=== PATIENT | male | born 1955 ===

== ENCOUNTER 2017-01-31 07:01 | Inpatient (IN) | payer SELFPAY ==
[2017-01-31] MEDS ORDERED: Piperacillin/Tazobact 3.375 gm Inj IVPB ONE (09:00)
[2017-01-31 23:47] VITALS: BMI 32.4
[2017-02-01] MEDS ORDERED: Dextrose 5%/0.45% NS 1,000 ML IV SCH (06:15)
--- NOTE | 2017-02-01 07:20 | CP.PCM.CON ---
<Dionne Forbes - Last Filed: 02/01/17 07:12> History of Present Illness - History of Present Illness History of Present Illness: General Surgery - Dr. Choudhury 61 yo M who presents to ED with epigastric abdominal pain that began yesterday around 2AM. Pt states he's had this pain once before but it went away on it's own. He describes the pain as sharp/burning located in the epigastric region, 8 /10, with some radiation to the back. Pt states the pain resolved after pain medication. He denies any associated nausea, vomiting, diarrhea, constipation , fevers, chills, SOB or chest pain. PMH/PSH: denies NKDA CT abd/pelvis done in the ED showed a distended galllbladder with thickened wall , surgery was consulted for cholecystitis. Review of Systems - Review of Systems All systems: reviewed and no additional remarkable complaints except (as per HPI ) Meds Allergies/Adverse Reactions: Allergies Allergy/AdvReac Type Severity Reaction Status Date / Time No Known Allergies Allergy Verified 01/31/17 23:47 - Medications Medications: Current Medications Acetaminophen (Tylenol 325mg Tab) 650 mg PO Q6 PRN PRN Reason: Pain, Mild (1-3) Acetaminophen (Tylenol 325mg Tab) 650 mg PO Q6 PRN PRN Reason: Fever >100.4 F Dextrose/Sodium Chloride (Dextrose 5%/0.45% Ns 1000 Ml) 1,000 mls @ 80 mls/hr IV .[id number] [facility] Stop: 02/04/17 06:08 Piperacillin Sod/Tazobactam (Sod 3.375 gm/ Sodium Chloride) 100 mls @ 100 mls/ hr IVPB Q8 [facility] Morphine Sulfate (Morphine) 2 mg IVP Q4 PRN PRN Reason: Pain, moderate (4-7) Morphine Sulfate (Morphine) 4 mg IVP Q4 PRN PRN Reason: Pain, severe (8-10) Ondansetron HCl (Zofran Inj) 4 mg IVP Q6 PRN PRN Reason: Nausea/Vomiting Physical Exam - Constitutional Appears: No Acute Distress - Head Exam Head Exam: ATRAUMATIC, NORMAL INSPECTION, NORMOCEPHALIC - Eye Exam Eye Exam: EOMI, Normal appearance - ENT Exam ENT Exam: Mucous Membranes Moist - Respiratory Exam Respiratory Exam: NORMAL BREATHING PATTERN. absent: Respiratory Distress - Cardiovascular Exam Cardiovascular Exam: REGULAR RHYTHM - GI/Abdominal Exam GI & Abdominal Exam: Soft. absent: Distended, Guarding, Rebound, Rigid, Tenderness - Neurological Exam Neurological exam: Alert, Oriented x3 - Psychiatric Exam Psychiatric exam: Normal Affect, Normal Mood - Skin Skin Exam: Dry, Intact Results - Imaging and Cardiology CT scan - abdomen Status: Report reviewed by me Assessment & Plan - Assessment and Plan (Free Text) Assessment: 61 yo M w/ epigastric pain and CT findings suggestive of cholecystitis -NPO, IVF -U/S RUQ to further eval GB and CBD -F/U Labs -Poss Cholecystectomy Saturday DW Dr Kei Forbes PGY2 <Rodrigo Choudhury - Last Filed: 02/03/17 22:43> Results - Vital Signs Recent Vital Signs: Last Vital Signs Temp 99.6 F 02/01/17 16:15 Pulse 81 02/01/17 08:08 Resp 20 02/01/17 08:08 BP 107/66 02/01/17 08:08 Pulse Ox 96 02/01/17 08:08 - Labs Result Diagrams: 01/31/17 07:56 01/31/17 07:56 Attending/Attestation - Attestation I have personally seen and examined this patient.: Yes I have fully participated in the care of the patient.: Yes I have reviewed all pertinent clinical information: Yes Notes (Text): 02/03/17 22:42 Pt was seen and examined at bedside on 02/01/17 Agree with above note and assessment Pt with RUQ pain and Cholelithiasis Pt is asymptomatic currently C.w current mx Plan d.w pt in detail Risk and benefit explained in detail.
[2017-02-01 08:09] VITALS: BP 107/66; PULSE 81; RESP 20; O2SAT 96
--- NOTE | 2017-02-01 08:13 | CP.PCM.PN ---
Subjective - Date & Time of Evaluation Date of Evaluation: 02/01/17 Time of Evaluation: 08:10 - Subjective Subjective: General Surgery - Dr. Choudhury Pt S&EHi GOEL. Pt states his abdominal pain is resolved. He denies any N/V, F/ C, Sob/Cp. U/S was performed yesterday with no evidence of gallstones. Objective - Vital Signs/Intake and Output Vital Signs (last 24 hours): Temp Pulse Resp BP Pulse Ox 99.9 F H 81 20 107/66 96 02/01/17 08:08 02/01/17 08:08 02/01/17 08:08 02/01/17 08:08 02/01/17 08:08 - Medications Medications: Current Medications Acetaminophen (Tylenol 325mg Tab) 650 mg PO Q6 PRN PRN Reason: Pain, Mild (1-3) Acetaminophen (Tylenol 325mg Tab) 650 mg PO Q6 PRN PRN Reason: Fever >100.4 F Dextrose/Sodium Chloride (Dextrose 5%/0.45% Ns 1000 Ml) 1,000 mls @ 80 mls/hr IV .[id number] [facility] Stop: 02/04/17 06:08 Piperacillin Sod/Tazobactam (Sod 3.375 gm/ Sodium Chloride) 100 mls @ 100 mls/ hr IVPB Q8 [facility] Morphine Sulfate (Morphine) 2 mg IVP Q4 PRN PRN Reason: Pain, moderate (4-7) Morphine Sulfate (Morphine) 4 mg IVP Q4 PRN PRN Reason: Pain, severe (8-10) Ondansetron HCl (Zofran Inj) 4 mg IVP Q6 PRN PRN Reason: Nausea/Vomiting - Constitutional Appears: Well, No Acute Distress - Head Exam Head Exam: ATRAUMATIC, NORMAL INSPECTION, NORMOCEPHALIC - Eye Exam Eye Exam: Normal appearance - Respiratory Exam Respiratory Exam: NORMAL BREATHING PATTERN. absent: Respiratory Distress - Cardiovascular Exam Cardiovascular Exam: REGULAR RHYTHM - GI/Abdominal Exam GI & Abdominal Exam: Soft. absent: Distended, Guarding, Rigid (negative breen' s), Tenderness, Rebound - Neurological Exam Neurological Exam: Alert, Oriented x3 - Psychiatric Exam Psychiatric exam: Normal Affect, Normal Mood - Skin Skin Exam: Dry, Intact Assessment and Plan - Assessment and Plan (Free Text) Assessment: 61 yo M w/ epigastric abdominal pain, resolved -CT and U/S show thickened GB wall but no evidence of gallstones -Regular diet -Consider GI evaluation -If tolerating PO and remains pain free pt is clear for d/c from surgical standpoint -Pt may F/U in office with Dr. Choudhury for outpatient workup. Dw Dr Kei Forbes PGY2
[2017-02-01 08:53] LABS: ALKALINE PHOSPHATASE 76 U/L (38-126); ALT/SGPT 38 U/L (21-72); AST/SGOT 31 U/L (17-59); BILIRUBIN,TOTAL 0.4 mg/dl (0.2-1.3); BLOOD UREA NITROGEN 21 mg/dl (9-20); CALCIUM 9.1 mg/dL (8.4-10.2); CARBON DIOXIDE 25 mmol/L (22-30); CHLORIDE 103 mmol/L (98-107); GFR AFRICAN-AMERICAN > 60; GLUCOSE,RANDOM 140 mg/dL (75-110); LIPASE 72 U/L (23-300); POTASSIUM 4.1 MMOL/L (3.6-5.0); SODIUM 139 mmol/l (132-148); TOTAL PROTEIN 7.7 G/DL (6.3-8.2)
[2017-02-01 08:55] LABS: ALB/GLOB RATIO 1.3 (1.0-2.1)
[2017-02-01] MEDS ORDERED: Piperacillin/Tazobact 3.375 GM in Sodium Chloride 0.9% 100 ML IVPB SCH (09:00)
[2017-02-01 09:27] LABS: BASO # 0.1 K/uL (0.0-0.2); BASO % 0.5 % (0.0-2.0); EOS # 0.3 K/uL (0.0-0.7); EOS % 1.9 % (0.0-4.0); LYMPH # 1.9 K/uL (1.0-4.3); LYMPH % 12.8 % (20.0-40.0); MEAN CELL VOLUME 85.3 fl (80.0-94.0); MEAN CORPUSCULAR HEMOGLOBIN 28.1 pg (27.0-31.0); MEAN PLATELET VOLUME 8.1 fl (7.2-11.7); MONO # 0.9 K/uL (0.0-0.8); MONO % 5.8 % (0.0-10.0); NEUT # 11.7 K/uL (1.8-7.0); NRBC % 0.1 % (0.0-0.0); RED CELL DISTRIBUTION WIDTH 12.9 % (11.5-14.5); WHITE BLOOD COUNT 14.8 K/uL (4.8-10.8)
--- NOTE | 2017-02-01 10:55 | CT ---
PROCEDURE: CT Abdomen and Pelvis with contrast HISTORY: Not provided COMPARISON: None. TECHNIQUE: Contrast dose: 95 mL Omnipaque 300 Radiation dose: Total exam DLP = 1276.76 mGy-cm. This CT exam was performed using one or more of the following dose reduction techniques: Automated exposure control, adjustment of the mA and/or kV according to patient size, and/or use of iterative reconstruction technique. FINDINGS: LOWER THORAX: Minimal dependent atelectasis at lung bases. LIVER: Normal size, contour and attenuation. No mass. No biliary ductal dilatation. GALLBLADDER AND BILE DUCTS: Multiple cholesterol calculi. Diffusely thickened gallbladder wall with small amount of pericholecystic fluid. Findings concerning for acute cholecystitis. Consider correlation with ultrasound examination. No evidence of choledocholithiasis. PANCREAS: Unremarkable. No gross lesion or ductal dilatation. SPLEEN: Unremarkable. ADRENALS: Unremarkable. No mass. KIDNEYS AND URETERS: Unremarkable. No hydronephrosis. No solid mass. VASCULATURE: Unremarkable. No aortic aneurysm. BOWEL: Scattered colonic diverticulae. No evidence of diverticulitis. No bowel obstruction. No abnormal bowel loops otherwise. APPENDIX: Not identified. No secondary findings to suggest acute appendicitis. PERITONEUM: Trace ascites in right paracolic gutter. LYMPH NODES: Unremarkable. No enlarged lymph nodes. BLADDER: Unremarkable. REPRODUCTIVE: Normal prostate BONES: No acute fracture. OTHER FINDINGS: None. IMPRESSION: Cholelithiasis with thickened gallbladder wall and pericholecystic fluid. Findings are suspicious for acute cholecystitis. Consider correlation with ultrasound examination. Trace fluid in right paracolic gutter likely related to the gallbladder. No other acute abnormality is identified.
[2017-02-01 11:14] LABS: ABG ALLEN TEST YES; ARTERIAL BLOOD GAS HCO3 25.8 mmol/L (21-28); ARTERIAL BLOOD GAS PO2 74 mm/Hg (80-100)
[2017-02-01 11:20] LABS: VENOUS BLOOD GAS MODE ROOM AIR
[2017-02-01 11:31] LABS: VENOUS BLOOD GAS BASE EXCESS 2.8 mmol/L (0.0-2.0); VENOUS BLOOD GAS PCO2 40 mmHg (40-60); VENOUS BLOOD PH 7.44 (7.32-7.43)
[2017-02-01 11:34] LABS: VENOUS BLOOD GAS BASE EXCESS 2.8 mmol/L (0.0-2.0); VENOUS BLOOD GAS MODE ROOM AIR; VENOUS BLOOD GAS PCO2 40 mmHg (40-60); VENOUS BLOOD PH 7.44 (7.32-7.43)
--- NOTE | 2017-02-01 13:32 | US ---
HISTORY: Abdominal pain COMPARISON: Limited abdominal ultrasound performed 02/27/16 TECHNIQUE: Sonographic evaluation of the right upper quadrant of the abdomen. FINDINGS: LIVER: Measures 13.7 cm in length. Echogenic liver may be seen in setting of hepatic parenchymal disease or fatty infiltration. No focal hepatic mass identified. No intrahepatic bile duct dilatation. GALLBLADDER: Gallstones. Gallbladder wall thickening measuring approximately 7 mm. Mild pericholecystic edema. Negative sonographic Oliver's sign as assessed by the tire fabricator. COMMON BILE DUCT: Measures 4 mm. PANCREAS: Not well-visualized. RIGHT KIDNEY: Measures 10.1 x 5.7 x 5.2 cm. No obstructing calculus or hydronephrosis identified. AORTA: Limited visualization appears grossly unremarkable. IVC: Limited visualization appears grossly unremarkable. OTHER FINDINGS: None . IMPRESSION: Echogenic liver may be seen in setting of hepatic parenchymal disease or fatty infiltration. Cholelithiasis. Gallbladder wall thickening. Pericholecystic edema. Negative sonographic Oliver sign as assessed by the tire fabricator.
--- NOTE | 2017-02-01 15:18 | CP.PCM.DIS ---
<Krishna Lizarraga - Last Filed: 02/03/17 13:53> Provider - Provider Date of Admission: 01/31/17 18:00 Attending physician: Sera Elias MD Primary care physician: Dr Méndez Consults: General Surgery Time Spent in preparation of Discharge (in minutes): 30 Diagnosis - Discharge Diagnosis (1) Acute cholecystitis Status: Acute Comment: Stable. For f/u as outpatient/LAP Hospital Course - Lab Results Lab Results: Most Recent Lab Values WBC 14.8 K/uL (4.8-10.8) H 01/31/17 07:56 RBC 4.93 Mil/uL (4.40-5.90) 01/31/17 07:56 Hgb 13.9 g/dL (12.0-18.0) 01/31/17 07:56 Hct 42.0 % (35.0-51.0) 01/31/17 07:56 MCV 85.3 fl (80.0-94.0) 01/31/17 07:56 MCH 28.1 pg (27.0-31.0) 01/31/17 07:56 MCHC 33.0 g/dL (33.0-37.0) 01/31/17 07:56 RDW 12.9 % (11.5-14.5) 01/31/17 07:56 Plt Count 235 K/uL (130-400) 01/31/17 07:56 MPV 8.1 fl (7.2-11.7) 01/31/17 07:56 Neut % (Auto) 79.0 % (50.0-75.0) H 01/31/17 07:56 Lymph % (Auto) 12.8 % (20.0-40.0) L 01/31/17 07:56 Cecil % (Auto) 5.8 % (0.0-10.0) 01/31/17 07:56 Eos % (Auto) 1.9 % (0.0-4.0) 01/31/17 07:56 Baso % (Auto) 0.5 % (0.0-2.0) 01/31/17 07:56 Neut # 11.7 K/uL (1.8-7.0) H 01/31/17 07:56 Lymph # 1.9 K/uL (1.0-4.3) 01/31/17 07:56 Cecil # 0.9 K/uL (0.0-0.8) H 01/31/17 07:56 Eos # 0.3 K/uL (0.0-0.7) 01/31/17 07:56 Baso # 0.1 K/uL (0.0-0.2) 01/31/17 07:56 pCO2 43 mm/Hg (35-45) 01/31/17 12:55 pO2 42 mm/Hg (30-55) 02/01/17 09:00 HCO3 25.8 mmol/L (21-28) 01/31/17 12:55 ABG pH 7.40 (7.35-7.45) 01/31/17 12:55 ABG Total CO2 27.9 mmol/L (22-28) 01/31/17 12:55 ABG O2 Saturation 96.0 % (95-98) 01/31/17 12:55 ABG Base Excess 1.4 mmol/L (-2.0-3.0) 01/31/17 12:55 Sanchez Test Yes 01/31/17 12:55 ABG Potassium 4.9 mmol/L (3.6-5.2) 01/31/17 12:55 VBG pH 7.44 (7.32-7.43) H 02/01/17 09:00 VBG pCO2 40 mmHg (40-60) 02/01/17 09:00 VBG HCO3 26.6 mmol/L 02/01/17 09:00 VBG Total CO2 28.4 mmol/L (22-28) H 02/01/17 09:00 VBG O2 Sat (Calc) 86.0 % (40-65) H 02/01/17 09:00 VBG Base Excess 2.8 mmol/L (0.0-2.0) H 02/01/17 09:00 VBG Potassium 3.2 mmol/L (3.6-5.2) L 02/01/17 09:00 A-a O2 Difference 58.0 mm/Hg 02/01/17 09:00 Sodium 133.0 mmol/L (132-148) 02/01/17 09:00 Chloride 103.0 mmol/L (98-107) 02/01/17 09:00 Glucose 134 mg/dL (75-110) H 02/01/17 09:00 Lactate 0.9 mmol/L (0.7-2.1) 02/01/17 09:00 FiO2 21 % 02/01/17 09:00 Crit Value Called To Sultana rivera r.n 01/31/17 15:50 Crit Value Called By 15 01/31/17 15:50 Crit Value Read Back Y 01/31/17 15:50 Blood Gas Notified Time 905 01/31/17 15:50 Sodium 139 mmol/l (132-148) 01/31/17 07:56 Potassium 4.1 MMOL/L (3.6-5.0) 01/31/17 07:56 Chloride 103 mmol/L (98-107) 01/31/17 07:56 Carbon Dioxide 25 mmol/L (22-30) 01/31/17 07:56 Anion Gap 15 (10-20) 01/31/17 07:56 BUN 21 mg/dl (9-20) H 01/31/17 07:56 Creatinine 0.9 mg/dL (0.8-1.5) 01/31/17 07:56 Est GFR ( Amer) > 60 01/31/17 07:56 Est GFR (Non-Af Amer) > 60 01/31/17 07:56 Random Glucose 140 mg/dL (75-110) H 01/31/17 07:56 Calcium 9.1 mg/dL (8.4-10.2) 01/31/17 07:56 Total Bilirubin 0.4 mg/dl (0.2-1.3) 01/31/17 07:56 AST 31 U/L (17-59) 01/31/17 07:56 ALT 38 U/L (21-72) 01/31/17 07:56 Alkaline Phosphatase 76 U/L (38-126) 01/31/17 07:56 Troponin I < 0.0120 ng/mL (0.00-0.120) 01/31/17 07:56 Total Protein 7.7 G/DL (6.3-8.2) 01/31/17 07:56 Albumin 4.4 g/dL (3.5-5.0) 01/31/17 07:56 Globulin 3.3 gm/dL (2.2-3.9) 01/31/17 07:56 Albumin/Globulin Ratio 1.3 (1.0-2.1) 01/31/17 07:56 Lipase 72 U/L (23-300) 01/31/17 07:56 Arterial Blood Potassium 4.9 mmol/L (3.6-5.2) 01/31/17 12:55 Venous Blood Potassium 3.2 mmol/L (3.6-5.2) L 02/01/17 09:00 - Hospital Course Hospital Course: 61 y/o M with no significant PMhx admitted to hosp for acute onset epigastric/ RUQ pain. Found to have acute cholecystitis with gallstones on abd US. Sx consulted and evaluated patient. The next day after admission patient symptoms resolved, he was started on diet and tolerated food with no vomiting or nausea and Sx team decided that patient was safe to DC home with PO abx and f/u in 1 week for ambulatory LAP cholecystectomy. Discharge Exam - Head Exam Head Exam: ATRAUMATIC, NORMAL INSPECTION, NORMOCEPHALIC - Eye Exam Eye Exam: PERRL - ENT Exam ENT Exam: Mucous Membranes Moist - Respiratory Exam Respiratory Exam: Clear to PA & Lateral, NORMAL BREATHING PATTERN - Cardiovascular Exam Cardiovascular Exam: REGULAR RHYTHM, +S1, +S2. absent: Gallop - GI/Abdominal Exam GI & Abdominal Exam: Normal Bowel Sounds, Soft, Unremarkable. absent: Distended , Rebound, Tenderness - Neurological Exam Neurological exam: Alert, Normal Gait, Oriented x3 - Psychiatric Exam Psychiatric exam: Normal Affect, Normal Mood - Skin Skin Exam: Normal Color, Warm Discharge Plan - Discharge Medications Prescriptions: Amoxicillin/Clavulanate [Augmentin 875 MG-125 MG] 1 tab PO BID #14 tab - Follow Up Plan Condition: GOOD Disposition: HOME/ ROUTINE Instructions: Cholecystitis (DC), Acute Nausea and Vomiting (DC) Additional Instructions: Upon discharge call Dr. Choudhury's office to schedule an appointment for an elective cholecystectomy Referrals: Rodrigo Choudhury MD [Staff Provider] - <Dolores Moseley - Last Filed: 02/04/17 11:12> Provider - Provider Date of Admission: 01/31/17 18:00 Attending physician: Sera Elias MD Hospital Course - Lab Results Lab Results: Most Recent Lab Values WBC 14.8 K/uL (4.8-10.8) H 01/31/17 07:56 RBC 4.93 Mil/uL (4.40-5.90) 01/31/17 07:56 Hgb 13.9 g/dL (12.0-18.0) 01/31/17 07:56 Hct 42.0 % (35.0-51.0) 01/31/17 07:56 MCV 85.3 fl (80.0-94.0) 01/31/17 07:56 MCH 28.1 pg (27.0-31.0) 01/31/17 07:56 MCHC 33.0 g/dL (33.0-37.0) 01/31/17 07:56 RDW 12.9 % (11.5-14.5) 01/31/17 07:56 Plt Count 235 K/uL (130-400) 01/31/17 07:56 MPV 8.1 fl (7.2-11.7) 01/31/17 07:56 Neut % (Auto) 79.0 % (50.0-75.0) H 01/31/17 07:56 Lymph % (Auto) 12.8 % (20.0-40.0) L 01/31/17 07:56 Cecil % (Auto) 5.8 % (0.0-10.0) 01/31/17 07:56 Eos % (Auto) 1.9 % (0.0-4.0) 01/31/17 07:56 Baso % (Auto) 0.5 % (0.0-2.0) 01/31/17 07:56 Neut # 11.7 K/uL (1.8-7.0) H 01/31/17 07:56 Lymph # 1.9 K/uL (1.0-4.3) 01/31/17 07:56 Cecil # 0.9 K/uL (0.0-0.8) H 01/31/17 07:56 Eos # 0.3 K/uL (0.0-0.7) 01/31/17 07:56 Baso # 0.1 K/uL (0.0-0.2) 01/31/17 07:56 pCO2 43 mm/Hg (35-45) 01/31/17 12:55 pO2 42 mm/Hg (30-55) 02/01/17 09:00 HCO3 25.8 mmol/L (21-28) 01/31/17 12:55 ABG pH 7.40 (7.35-7.45) 01/31/17 12:55 ABG Total CO2 27.9 mmol/L (22-28) 01/31/17 12:55 ABG O2 Saturation 96.0 % (95-98) 01/31/17 12:55 ABG Base Excess 1.4 mmol/L (-2.0-3.0) 01/31/17 12:55 Sanchez Test Yes 01/31/17 12:55 ABG Potassium 4.9 mmol/L (3.6-5.2) 01/31/17 12:55 VBG pH 7.44 (7.32-7.43) H 02/01/17 09:00 VBG pCO2 40 mmHg (40-60) 02/01/17 09:00 VBG HCO3 26.6 mmol/L 02/01/17 09:00 VBG Total CO2 28.4 mmol/L (22-28) H 02/01/17 09:00 VBG O2 Sat (Calc) 86.0 % (40-65) H 02/01/17 09:00 VBG Base Excess 2.8 mmol/L (0.0-2.0) H 02/01/17 09:00 VBG Potassium 3.2 mmol/L (3.6-5.2) L 02/01/17 09:00 A-a O2 Difference 58.0 mm/Hg 02/01/17 09:00 Sodium 133.0 mmol/L (132-148) 02/01/17 09:00 Chloride 103.0 mmol/L (98-107) 02/01/17 09:00 Glucose 134 mg/dL (75-110) H 02/01/17 09:00 Lactate 0.9 mmol/L (0.7-2.1) 02/01/17 09:00 FiO2 21 % 02/01/17 09:00 Crit Value Called To Sultana rivera r.n 01/31/17 15:50 Crit Value Called By Francisca 01/31/17 15:50 Crit Value Read Back Y 01/31/17 15:50 Blood Gas Notified Time 905 01/31/17 15:50 Sodium 139 mmol/l (132-148) 01/31/17 07:56 Potassium 4.1 MMOL/L (3.6-5.0) 01/31/17 07:56 Chloride 103 mmol/L (98-107) 01/31/17 07:56 Carbon Dioxide 25 mmol/L (22-30) 01/31/17 07:56 Anion Gap 15 (10-20) 01/31/17 07:56 BUN 21 mg/dl (9-20) H 01/31/17 07:56 Creatinine 0.9 mg/dL (0.8-1.5) 01/31/17 07:56 Est GFR ( Amer) > 60 01/31/17 07:56 Est GFR (Non-Af Amer) > 60 01/31/17 07:56 Random Glucose 140 mg/dL (75-110) H 01/31/17 07:56 Calcium 9.1 mg/dL (8.4-10.2) 01/31/17 07:56 Total Bilirubin 0.4 mg/dl (0.2-1.3) 01/31/17 07:56 AST 31 U/L (17-59) 01/31/17 07:56 ALT 38 U/L (21-72) 01/31/17 07:56 Alkaline Phosphatase 76 U/L (38-126) 01/31/17 07:56 Troponin I < 0.0120 ng/mL (0.00-0.120) 01/31/17 07:56 Total Protein 7.7 G/DL (6.3-8.2) 01/31/17 07:56 Albumin 4.4 g/dL (3.5-5.0) 01/31/17 07:56 Globulin 3.3 gm/dL (2.2-3.9) 01/31/17 07:56 Albumin/Globulin Ratio 1.3 (1.0-2.1) 01/31/17 07:56 Lipase 72 U/L (23-300) 01/31/17 07:56 Arterial Blood Potassium 4.9 mmol/L (3.6-5.2) 01/31/17 12:55 Venous Blood Potassium 3.2 mmol/L (3.6-5.2) L 02/01/17 09:00 Discharge Exam - Additional Findings Additional findings: PATIENT SEEN AND EXAMINED. CASE DISCUSSED WITH RESIDENT. PATIENT TO BE DISCAHRGED TO OUTPATIENT FOLLOW UP WITH GENERAL SURGERY A PER THEIR RECOMMENDATION.
[2017-02-01 16:15] VITALS: TEMP 99.6
--- NOTE | 2017-02-01 23:15 | CARD ---
APPROVED REPORT EKG Measurement Heart [id number] MI [id number] <Conclusion> Normal sinus rhythm Normal ECG
== END 2017-02-01 16:41 | disposition home or self-care (01) | DRG 208 ==
LOC: H.EDERROR 07:01 → H.MEDSURG1 14:54 → UNDOADMIN 14:54 → H.MEDSURG1 18:00
PROVIDERS: ADMIT Family Medicine Geriatric Medicine; ATTEND Family Medicine Geriatric Medicine
DX: K80.00 Calculus of gallbladder with acute cholecystitis without obstruction (principal); E78.00 Pure hypercholesterolemia, unspecified